=== PATIENT | male | born 1960 | race Asian ===

== ENCOUNTER → 2016-08-03 | Outpatient (CLI) | payer OTHER ==
[~2016-08-03] MED LIST: BENADRYL ALLERG25 MG PO; CALCIUM + D3 E1 EACH PO; CENTRUM SILVER1 EAC3 PO; GLUCOSAMINE &1 EAC1 PO; HYDROCHLOROTHIA25 MG PO; IBUPROFEN800 MG PO; METHOCARBAMOL750 MG PO; OXYCODONE-ACET1 EACH PO; PRAVASTATIN SOD10 MG PO; TRAMADOL HCL50 MG PO
== END | disposition home or self-care (01) ==
LOC: CDC 12:48
DX: S42.021D Displaced fracture of shaft of right clavicle, subsequent encounter for fracture with routine healing (principal)
CPT/HCPCS: 93000